=== PATIENT | female | born 1970 | race Hispanic/Latino ===

== ENCOUNTER 2020-12-26 14:35 | Inpatient (IN) | payer SELFPAY ==
[~2020-12-26] VITALS: Ht 170.2 cm; Wt 135.2 kg
[2020-12-26 14:39] VITALS: BP 153/83
[2020-12-26 15:16] LABS: APPEARANCE,URINE Clear (CLEAR); BILIRUBIN,URINE Negative (NEGATIVE); COLOR,URINE Yellow (YELLOW); GLUCOSE, URINE (UA) Negative (NEGATIVE); KETONES,URINE 15 mg/dL (NEGATIVE); LEUKOCYTE ESTERASE ,URINE Small (NEGATIVE); NITRATE,URINE Negative (NEGATIVE); OCCULT BLOOD,URINE Negative (NEGATIVE); PROTEIN,URINE Negative (NEGATIVE)
[2020-12-26 15:25] LABS: RBC,URINE 0-1 /HPF (0-1)
[2020-12-26 15:26] LABS: BACTERIA,URINE Rare /HPF (None Seen); SQUAMOUS EPITHELIAL CELL,UR Few /HPF (0-2)
[2020-12-26 16:09] LABS: BASOPHILS % (AUTO) 0.3 % (0.0-5.0); EOSINOPHILS % (AUTO) 0.2 % (0.0-8.0); LYMPHOCYTES % (AUTO) 8.4 % (21.0-51.0); MEAN CORPUSCULAR HEMOGLOBIN 29.5 pg (27.0-33.0); MEAN CORPUSCULAR HGB CONC 32.2 g/dL (32.0-36.0); MEAN CORPUSCULAR VOLUME 91.5 fL (79-99); NEUTROPHILS % (AUTO) 83.1 % (40.0-77.0); PLATELET COUNT (AUTO) 471 K/uL (130-400); RED BLOOD CELL COUNT(AUTO) 4.48 MIL/uL (4.00-5.50); RED CELL DISTRIBUTION WIDTH 12.8 % (11.0-15.5); WHITE BLOOD COUNT (AUTO) 15.7 K/uL (4.8-10.8)
[2020-12-26 16:22] LABS: CREATININE 0.8 mg/dL (0.5-1.5); POTASSIUM 3.3 mmol/L (3.5-5.1)
[2020-12-26 16:28] LABS: ALBUMIN 2.7 g/dL (3.5-5.0); BILIRUBIN,TOTAL 0.2 mg/dL (0.2-1.0); TOTAL PROTEIN, SERUM 8.7 g/dL (6.0-8.3)
[2020-12-26] MEDS ORDERED: 0.9%NACL 1000ML 1,000 ML IV ONE (16:30)
[2020-12-26] MEDS ORDERED: ACETAMINOPHEN 500 MG TABLET PO ONE (16:30)
[2020-12-26] MEDS ORDERED: 0.9%NACL 50ML 50 ML IV ONE (16:30)
[2020-12-26] MEDS ORDERED: POTASSIUM BICARB/CIT AC 25 MEQ TABLET.EFF PO ONE (16:30)
[2020-12-26] MEDS ORDERED: ZOSYN 3.375GM +NS 50ML IV ONE (16:30)
[2020-12-26] MEDS ORDERED: LISI40TA9 PO (18:55)
[2020-12-26] MEDS ORDERED: METO-391 PO (18:55)
[2020-12-26] MEDS ORDERED: ESCI-8 PO (18:55)
[2020-12-26 18:57] VITALS: BP 144/81
[2020-12-26] MEDS ORDERED: ONDANSETRON 4MG INJ IVP PRN (20:30)
[2020-12-26] MEDS: FAMOTIDINE 20MG VIAL IV SCH (20:58)
[2020-12-26] MEDS: 0.9%NACL 50ML 50 ML IV SCH (20:58)
[2020-12-26] MEDS: METRONIDAZOLE 500MG/100ML BAG 100 ML IV SCH (20:58)
[2020-12-26] MEDS: LISINOPRIL 40 MG TABLET PO SCH (21:00)
[2020-12-26] MEDS: ZOSYN 3.375GM+NS 50ML 50 ML IV SCH (21:00)
[2020-12-26] MEDS: LACTATED RINGERS 1000ML 1,000 ML IV SCH (21:00)
[2020-12-26] MEDS: METOPROLOL SUCCINATE 50 MG TAB.SR.24H PO SCH (21:00)
[2020-12-26 23:21] VITALS: BP 133/95
[2020-12-27] VITALS (7 sets, daily range): BP systolic 109–160; BP diastolic 63–89
[2020-12-27] MEDS ORDERED: FENTANYL CITRATE PF 50 MCG/1 ML 2ML VIAL IVP PRN (00:30)
[2020-12-27] MEDS: MORPHINE 2 MG SYG IV PRN (00:40)
[2020-12-27] MEDS: METRONIDAZOLE 500MG/100ML BAG 100 ML IV SCH ×3 (04:04→19:34)
[2020-12-27] MEDS: MORPHINE 4 MG SYG IV PRN (04:07)
[2020-12-27] MEDS: LACTATED RINGERS 1000ML 1,000 ML IV SCH ×2 (05:37→15:00)
[2020-12-27] MEDS: ZOSYN 3.375GM+NS 50ML 50 ML IV SCH ×3 (05:37→19:34)
[2020-12-27] MEDS: 0.9%NACL 50ML 50 ML IV SCH ×3 (05:37→19:34)
[2020-12-27 05:40] LABS: BASOPHILS % (AUTO) 0.2 % (0.0-5.0); HEMATOCRIT 35.6 % (36-48); LYMPHOCYTES % (AUTO) 3.5 % (21.0-51.0); MEAN CORPUSCULAR HEMOGLOBIN 29.3 pg (27.0-33.0); MEAN CORPUSCULAR HGB CONC 32.3 g/dL (32.0-36.0); MEAN CORPUSCULAR VOLUME 90.6 fL (79-99); MONOCYTES % (AUTO) 5.5 % (3.0-13.0); PLATELET COUNT (AUTO) 393 K/uL (130-400); RED BLOOD CELL COUNT(AUTO) 3.93 MIL/uL (4.00-5.50); RED CELL DISTRIBUTION WIDTH 12.9 % (11.0-15.5); WHITE BLOOD COUNT (AUTO) 16.6 K/uL (4.8-10.8)
[2020-12-27 05:51] LABS: INR 1.27 (0.85-1.15); PROTHROMBIN TIME 13.5 SEC (9.6-11.6)
[2020-12-27 05:52] LABS: CREATININE 0.7 mg/dL (0.5-1.5); MAGNESIUM 1.6 mg/dL (1.80-2.40); PHOSPHORUS 2.3 mg/dL (2.5-4.9); POTASSIUM 3.5 mmol/L (3.5-5.1)
[2020-12-27] MEDS: FAMOTIDINE 20MG VIAL IV SCH ×2 (08:44→19:34)
[2020-12-27 17:54] LABS: ALBUMIN 2.4 g/dL (3.5-5.0); BILIRUBIN,TOTAL 0.3 mg/dL (0.2-1.0); CREATININE 0.9 mg/dL (0.5-1.5); POTASSIUM 3.3 mmol/L (3.5-5.1); TOTAL PROTEIN, SERUM 7.9 g/dL (6.0-8.3)
[2020-12-27] MEDS: METOPROLOL SUCCINATE 50 MG TAB.SR.24H PO SCH (19:37)
[2020-12-27] MEDS: LISINOPRIL 40 MG TABLET PO SCH (19:37)
[2020-12-28] MEDS: METRONIDAZOLE 500MG/100ML BAG 100 ML IV SCH ×3 (02:11→21:17)
[2020-12-28] MEDS: MORPHINE 4 MG SYG IV PRN (03:02)
[2020-12-28 04:14] VITALS: BP 126/70
[2020-12-28] MEDS: ZOSYN 3.375GM+NS 50ML 50 ML IV SCH ×3 (04:33→21:17)
[2020-12-28] MEDS: 0.9%NACL 50ML 50 ML IV SCH ×3 (04:33→21:17)
[2020-12-28 04:48] LABS: BASOPHILS % (AUTO) 0.1 % (0.0-5.0); EOSINOPHILS % (AUTO) 0.1 % (0.0-8.0); HEMATOCRIT 34.2 % (36-48); LYMPHOCYTES % (AUTO) 6.7 % (21.0-51.0); MEAN CORPUSCULAR HEMOGLOBIN 29.5 pg (27.0-33.0); MEAN CORPUSCULAR HGB CONC 32.2 g/dL (32.0-36.0); MEAN CORPUSCULAR VOLUME 91.7 fL (79-99); MONOCYTES % (AUTO) 5.6 % (3.0-13.0); NEUTROPHILS % (AUTO) 86.6 % (40.0-77.0); PLATELET COUNT (AUTO) 369 K/uL (130-400); RED BLOOD CELL COUNT(AUTO) 3.73 MIL/uL (4.00-5.50)
[2020-12-28 05:07] LABS: CREATININE 0.7 mg/dL (0.5-1.5); MAGNESIUM 1.9 mg/dL (1.80-2.40); POTASSIUM 3.1 mmol/L (3.5-5.1)
[2020-12-28] MEDS: POTASSIUM CHLORIDE 20MEQ/100ML 100 ML IV PRN (05:19)
[2020-12-28 05:24] LABS: CRP QUANTITATIVE 328.9 mg/L (0.00-9.0)
[2020-12-28 06:03] LABS: ERYTHROCYTE SEDIMENTATION RATE 107 MM/HR (0-30)
[2020-12-28 07:30] VITALS: BP 118/70
[2020-12-28] MEDS: FAMOTIDINE 20MG VIAL IV SCH ×2 (10:12→21:17)
[2020-12-28 11:00] VITALS: BP 134/77
[2020-12-28 16:00] VITALS: BP 145/77
[2020-12-28 20:00] VITALS: BP 147/89
[2020-12-28] MEDS: LACTATED RINGERS 1000ML 1,000 ML IV SCH ×3 (21:00→21:16)
[2020-12-28] MEDS: METOPROLOL SUCCINATE 50 MG TAB.SR.24H PO SCH (21:17)
[2020-12-28] MEDS: LISINOPRIL 40 MG TABLET PO SCH (21:17)
[2020-12-28] MEDS: MORPHINE 2 MG SYG IV PRN (21:18)
[2020-12-29] VITALS (7 sets, daily range): BP systolic 133–157; BP diastolic 73–97
[2020-12-29] MEDS: METRONIDAZOLE 500MG/100ML BAG 100 ML IV SCH ×3 (04:56→18:09)
[2020-12-29] MEDS: ZOSYN 3.375GM+NS 50ML 50 ML IV SCH ×3 (04:56→20:10)
[2020-12-29] MEDS: 0.9%NACL 50ML 50 ML IV SCH ×3 (04:56→20:10)
[2020-12-29 05:24] LABS: BASOPHILS % (AUTO) 0.2 % (0.0-5.0); EOSINOPHILS % (AUTO) 0.4 % (0.0-8.0); LYMPHOCYTES % (AUTO) 8.4 % (21.0-51.0); MEAN CORPUSCULAR HEMOGLOBIN 29.7 pg (27.0-33.0); MEAN CORPUSCULAR HGB CONC 32.1 g/dL (32.0-36.0); MEAN CORPUSCULAR VOLUME 92.4 fL (79-99); MONOCYTES % (AUTO) 5.9 % (3.0-13.0); NEUTROPHILS % (AUTO) 84.3 % (40.0-77.0); PLATELET COUNT (AUTO) 365 K/uL (130-400); RED BLOOD CELL COUNT(AUTO) 3.57 MIL/uL (4.00-5.50); RED CELL DISTRIBUTION WIDTH 13.2 % (11.0-15.5); WHITE BLOOD COUNT (AUTO) 12.1 K/uL (4.8-10.8)
[2020-12-29 05:51] LABS: CREATININE 0.6 mg/dL (0.5-1.5); POTASSIUM 3.1 mmol/L (3.5-5.1)
[2020-12-29 06:36] LABS: CRP QUANTITATIVE 312.1 mg/L (0.00-9.0)
[2020-12-29] MEDS: LACTATED RINGERS 1000ML 1,000 ML IV SCH ×3 (07:00→20:09)
[2020-12-29] MEDS: FAMOTIDINE 20MG VIAL IV SCH ×2 (09:26→20:10)
[2020-12-29] MEDS: POTASSIUM CHLORIDE 10% ELIXIR 20 MEQ/15 ML UDCUP PO PRN ×3 (10:39→18:10)
[2020-12-29] MEDS: METOPROLOL SUCCINATE 50 MG TAB.SR.24H PO SCH (20:09)
[2020-12-29] MEDS: LISINOPRIL 40 MG TABLET PO SCH (20:09)
[2020-12-29] MEDS: MORPHINE 2 MG SYG IV PRN (21:54)
[2020-12-30] MEDS: METRONIDAZOLE 500MG/100ML BAG 100 ML IV SCH ×3 (02:04→18:46)
[2020-12-30] MEDS: MORPHINE 4 MG SYG IV PRN (03:11)
[2020-12-30 03:42] VITALS: BP 139/72
[2020-12-30] MEDS: ZOSYN 3.375GM+NS 50ML 50 ML IV SCH ×3 (04:18→20:15)
[2020-12-30] MEDS: 0.9%NACL 50ML 50 ML IV SCH ×3 (04:18→20:15)
[2020-12-30 05:51] LABS: BASOPHILS % (AUTO) 0.3 % (0.0-5.0); EOSINOPHILS % (AUTO) 0.4 % (0.0-8.0); HEMATOCRIT 31.9 % (36-48); LYMPHOCYTES % (AUTO) 7.9 % (21.0-51.0); MEAN CORPUSCULAR HEMOGLOBIN 29.7 pg (27.0-33.0); MEAN CORPUSCULAR HGB CONC 32.3 g/dL (32.0-36.0); MEAN CORPUSCULAR VOLUME 91.9 fL (79-99); MONOCYTES % (AUTO) 6.6 % (3.0-13.0); NEUTROPHILS % (AUTO) 83.9 % (40.0-77.0); PLATELET COUNT (AUTO) 354 K/uL (130-400); RED BLOOD CELL COUNT(AUTO) 3.47 MIL/uL (4.00-5.50); RED CELL DISTRIBUTION WIDTH 13.2 % (11.0-15.5); WHITE BLOOD COUNT (AUTO) 11.6 K/uL (4.8-10.8)
[2020-12-30 06:06] LABS: CREATININE 0.5 mg/dL (0.5-1.5); POTASSIUM 3.4 mmol/L (3.5-5.1)
[2020-12-30 06:31] LABS: CRP QUANTITATIVE 219.3 mg/L (0.00-9.0)
[2020-12-30 07:50] VITALS: BP 147/90
[2020-12-30] MEDS: FAMOTIDINE 20MG VIAL IV SCH ×2 (08:19→20:15)
[2020-12-30] MEDS: KCL 20 MEQ ERTAB PO PRN ×2 (08:21→18:46)
[2020-12-30 11:36] VITALS: BP 147/95
[2020-12-30] MEDS: LACTATED RINGERS 1000ML 1,000 ML IV SCH ×2 (13:00→23:00)
[2020-12-30] MEDS: FLUCONAZOLE 200 MG/NS 100 ML 100 ML IV SCH (15:04)
[2020-12-30 15:54] VITALS: BP 165/84
[2020-12-30 20:00] VITALS: BP 147/90
[2020-12-30] MEDS: CITALOPRAM 20 MG TABLET PO SCH (20:13)
[2020-12-30] MEDS: METOPROLOL SUCCINATE 50 MG TAB.SR.24H PO SCH (20:13)
[2020-12-30] MEDS: LISINOPRIL 40 MG TABLET PO SCH (20:15)
[2020-12-30] MEDS ORDERED: DIATR MEGLU/DIATRIZOATE SODIUM 30 ML BOTTLE ONE (20:40)
[2020-12-30] MEDS ORDERED: IOHEXOL 350 MG/ML 100ML INFUS..BTL IV ONE (23:02)
[2020-12-31] VITALS (8 sets, daily range): BP systolic 139–172; BP diastolic 72–97
[2020-12-31] MEDS: METRONIDAZOLE 500MG/100ML BAG 100 ML IV SCH ×3 (02:19→18:08)
[2020-12-31] MEDS: 0.9%NACL 50ML 50 ML IV SCH ×3 (04:47→21:00)
[2020-12-31] MEDS: ZOSYN 3.375GM+NS 50ML 50 ML IV SCH ×3 (04:47→20:25)
[2020-12-31 06:25] LABS: CREATININE 0.6 mg/dL (0.5-1.5); POTASSIUM 3.6 mmol/L (3.5-5.1)
[2020-12-31 06:28] LABS: BASOPHILS % (AUTO) 0.4 % (0.0-5.0); EOSINOPHILS % (AUTO) 0.6 % (0.0-8.0); HEMATOCRIT 32.4 % (36-48); LYMPHOCYTES % (AUTO) 12.6 % (21.0-51.0); MEAN CORPUSCULAR HEMOGLOBIN 29.8 pg (27.0-33.0); MEAN CORPUSCULAR HGB CONC 32.1 g/dL (32.0-36.0); MEAN CORPUSCULAR VOLUME 92.8 fL (79-99); MONOCYTES % (AUTO) 8.1 % (3.0-13.0); NEUTROPHILS % (AUTO) 77.5 % (40.0-77.0); PLATELET COUNT (AUTO) 382 K/uL (130-400); RED BLOOD CELL COUNT(AUTO) 3.49 MIL/uL (4.00-5.50); RED CELL DISTRIBUTION WIDTH 13.2 % (11.0-15.5); WHITE BLOOD COUNT (AUTO) 11.1 K/uL (4.8-10.8)
[2020-12-31] MEDS: LACTATED RINGERS 1000ML 1,000 ML IV SCH ×2 (08:50→18:08)
[2020-12-31] MEDS: FAMOTIDINE 20MG VIAL IV SCH ×2 (08:50→20:25)
[2020-12-31] MEDS: FLUCONAZOLE 200 MG/NS 100 ML 100 ML IV SCH (14:30)
[2020-12-31] MEDS: CITALOPRAM 20 MG TABLET PO SCH (20:25)
[2020-12-31] MEDS: METOPROLOL SUCCINATE 50 MG TAB.SR.24H PO SCH (20:25)
[2020-12-31] MEDS: LISINOPRIL 40 MG TABLET PO SCH (20:25)
[2020-12-31] MEDS: ZOLPIDEM TARTRATE 5 MG TAB PO PRN (21:47)
[2021-01-01] VITALS (7 sets, daily range): BP systolic 139–171; BP diastolic 74–103
[2021-01-01] MEDS: METRONIDAZOLE 500MG/100ML BAG 100 ML IV SCH ×3 (02:20→18:10)
[2021-01-01] MEDS: LACTATED RINGERS 1000ML 1,000 ML IV SCH ×2 (04:06→15:35)
[2021-01-01] MEDS: ZOSYN 3.375GM+NS 50ML 50 ML IV SCH ×3 (04:06→20:24)
[2021-01-01] MEDS: 0.9%NACL 50ML 50 ML IV SCH ×3 (04:06→20:24)
[2021-01-01 06:40] LABS: BASOPHILS % (AUTO) 0.4 % (0.0-5.0); EOSINOPHILS % (AUTO) 0.5 % (0.0-8.0); HEMATOCRIT 33.2 % (36-48); LYMPHOCYTES % (AUTO) 13.2 % (21.0-51.0); MEAN CORPUSCULAR HEMOGLOBIN 28.8 pg (27.0-33.0); MEAN CORPUSCULAR HGB CONC 31.9 g/dL (32.0-36.0); MEAN CORPUSCULAR VOLUME 90.2 fL (79-99); MONOCYTES % (AUTO) 7.3 % (3.0-13.0); PLATELET COUNT (AUTO) 387 K/uL (130-400); RED BLOOD CELL COUNT(AUTO) 3.68 MIL/uL (4.00-5.50); RED CELL DISTRIBUTION WIDTH 13.1 % (11.0-15.5); WHITE BLOOD COUNT (AUTO) 9.7 K/uL (4.8-10.8)
[2021-01-01 06:54] LABS: CREATININE 0.6 mg/dL (0.5-1.5); CRP QUANTITATIVE 149.8 mg/L (0.00-9.0); POTASSIUM 3.2 mmol/L (3.5-5.1)
[2021-01-01] MEDS: POTASSIUM CHLORIDE 20MEQ/100ML 100 ML IV PRN (08:48)
[2021-01-01] MEDS: LIDOCAINE HCL-MPF 1% 2ML VIAL IV PRN (08:48)
[2021-01-01] MEDS: FAMOTIDINE 20MG VIAL IV SCH ×2 (08:48→20:25)
[2021-01-01] MEDS: FLUCONAZOLE 200 MG/NS 100 ML 100 ML IV SCH (15:35)
[2021-01-01] MEDS ORDERED: LABETALOL 20MG SYG IV PRN (17:00)
[2021-01-01] MEDS ORDERED: LORAZEPAM 2 MG/ML 1 ML VIAL IVP PRN (17:00)
[2021-01-01] MEDS: LISINOPRIL 40 MG TABLET PO SCH (20:25)
[2021-01-01] MEDS: METOPROLOL SUCCINATE 50 MG TAB.SR.24H PO SCH (20:25)
[2021-01-01] MEDS: CITALOPRAM 20 MG TABLET PO SCH (20:25)
[2021-01-01] MEDS: KCL 20 MEQ ERTAB PO PRN (20:26)
[2021-01-01] MEDS: ZOLPIDEM TARTRATE 5 MG TAB PO PRN (21:17)
[2021-01-01] MEDS: POTASSIUM CHLORIDE 10% ELIXIR 20 MEQ/15 ML UDCUP PO PRN (21:17)
[2021-01-02] MEDS: LACTATED RINGERS 1000ML 1,000 ML IV SCH ×3 (01:00→22:40)
[2021-01-02] MEDS: METRONIDAZOLE 500MG/100ML BAG 100 ML IV SCH ×3 (03:10→19:00)
[2021-01-02 03:31] VITALS: BP 141/77
[2021-01-02] MEDS: ZOSYN 3.375GM+NS 50ML 50 ML IV SCH ×3 (05:08→22:40)
[2021-01-02] MEDS: 0.9%NACL 50ML 50 ML IV SCH ×3 (05:08→22:40)
[2021-01-02 05:15] LABS: BASOPHILS % (AUTO) 0.4 % (0.0-5.0); EOSINOPHILS % (AUTO) 0.1 % (0.0-8.0); HEMATOCRIT 32.3 % (36-48); LYMPHOCYTES % (AUTO) 7.3 % (21.0-51.0); MEAN CORPUSCULAR HEMOGLOBIN 29.7 pg (27.0-33.0); MEAN CORPUSCULAR HGB CONC 32.2 g/dL (32.0-36.0); MEAN CORPUSCULAR VOLUME 92.3 fL (79-99); MONOCYTES % (AUTO) 6.4 % (3.0-13.0); PLATELET COUNT (AUTO) 359 K/uL (130-400); RED CELL DISTRIBUTION WIDTH 13.3 % (11.0-15.5); WHITE BLOOD COUNT (AUTO) 14.2 K/uL (4.8-10.8)
[2021-01-02 05:34] LABS: % IRON SATURATION 20.7 % (22-44)
[2021-01-02 05:46] LABS: CREATININE 0.6 mg/dL (0.5-1.5); CRP QUANTITATIVE 116.8 mg/L (0.00-9.0); MAGNESIUM 1.7 mg/dL (1.80-2.40); POTASSIUM 3.4 mmol/L (3.5-5.1)
[2021-01-02 06:22] LABS: ERYTHROCYTE SEDIMENTATION RATE 123 MM/HR (0-30)
[2021-01-02] MEDS: MAGNESIUM 2GM PREMIX 50ML 50 ML IV SCH (07:00)
[2021-01-02] MEDS: POTASSIUM CHLORIDE 10% ELIXIR 20 MEQ/15 ML UDCUP PO PRN (07:00)
[2021-01-02 07:30] VITALS: BP 119/83
[2021-01-02] MEDS ORDERED: COMPOUND IV MISC 1 EACH IVSOLN MISC PRN (08:30)
[2021-01-02] MEDS: FAMOTIDINE 20MG VIAL IV SCH ×2 (09:36→22:40)
[2021-01-02] MEDS: METOPROLOL SUCCINATE 50 MG TAB.SR.24H PO SCH (09:38)
[2021-01-02] MEDS: LISINOPRIL 40 MG TABLET PO SCH (09:38)
[2021-01-02 11:00] VITALS: BP 162/89
[2021-01-02] MEDS: IRON SUCROSE COMPLEX 300 MG in 0.9%NACL 50ML 50 ML IV SCH (11:18)
[2021-01-02] MEDS: FLUCONAZOLE 200 MG/NS 100 ML 100 ML IV SCH (14:41)
[2021-01-02 16:00] VITALS: BP 146/91
[2021-01-02 20:00] VITALS: BP 162/83
[2021-01-02] MEDS: CITALOPRAM 20 MG TABLET PO SCH (22:40)
[2021-01-03] VITALS: BP 157/85
[2021-01-03] MEDS: METRONIDAZOLE 500MG/100ML BAG 100 ML IV SCH ×3 (03:15→20:06)
[2021-01-03 04:00] VITALS: BP 144/69
[2021-01-03] MEDS: ZOSYN 3.375GM+NS 50ML 50 ML IV SCH ×3 (05:52→20:40)
[2021-01-03] MEDS: 0.9%NACL 50ML 50 ML IV SCH ×3 (05:52→20:40)
[2021-01-03 06:01] LABS: CREATININE 0.6 mg/dL (0.5-1.5); CRP QUANTITATIVE 147.2 mg/L (0.00-9.0); POTASSIUM 3.4 mmol/L (3.5-5.1)
[2021-01-03] MEDS: LACTATED RINGERS 1000ML 1,000 ML IV SCH ×2 (06:42→22:43)
[2021-01-03 06:47] LABS: BASOPHILS % (AUTO) 0.3 % (0.0-5.0); EOSINOPHILS % (AUTO) 0.6 % (0.0-8.0); HEMATOCRIT 31.8 % (36-48); LYMPHOCYTES % (AUTO) 10.9 % (21.0-51.0); MEAN CORPUSCULAR HEMOGLOBIN 29.6 pg (27.0-33.0); MEAN CORPUSCULAR HGB CONC 32.4 g/dL (32.0-36.0); MEAN CORPUSCULAR VOLUME 91.4 fL (79-99); MONOCYTES % (AUTO) 8.3 % (3.0-13.0); NEUTROPHILS % (AUTO) 79.3 % (40.0-77.0); PLATELET COUNT (AUTO) 378 K/uL (130-400); RED BLOOD CELL COUNT(AUTO) 3.48 MIL/uL (4.00-5.50); RED CELL DISTRIBUTION WIDTH 13.6 % (11.0-15.5); WHITE BLOOD COUNT (AUTO) 10.2 K/uL (4.8-10.8)
[2021-01-03 07:30] VITALS: BP 154/82
[2021-01-03] MEDS: FAMOTIDINE 20MG VIAL IV SCH ×2 (08:27→20:39)
[2021-01-03] MEDS: METOPROLOL SUCCINATE 50 MG TAB.SR.24H PO SCH (08:27)
[2021-01-03] MEDS: LISINOPRIL 40 MG TABLET PO SCH (08:27)
[2021-01-03 11:00] VITALS: BP 131/74
[2021-01-03] MEDS: IRON SUCROSE COMPLEX 300 MG in 0.9%NACL 50ML 50 ML IV SCH (12:27)
[2021-01-03 16:00] VITALS: BP 168/92
[2021-01-03] MEDS: FLUCONAZOLE 200 MG/NS 100 ML 100 ML IV SCH (17:03)
[2021-01-03] MEDS: POTASSIUM CHLORIDE 10% ELIXIR 20 MEQ/15 ML UDCUP PO PRN ×2 (17:06→20:39)
[2021-01-03 20:00] VITALS: BP 160/90
[2021-01-03] MEDS: CITALOPRAM 20 MG TABLET PO SCH (20:39)
[2021-01-04] VITALS (7 sets, daily range): BP systolic 130–166; BP diastolic 73–90
[2021-01-04] MEDS: LACTATED RINGERS 1000ML 1,000 ML IV SCH ×2 (03:00→14:20)
[2021-01-04] MEDS: METRONIDAZOLE 500MG/100ML BAG 100 ML IV SCH ×3 (03:18→18:45)
[2021-01-04] MEDS: 0.9%NACL 50ML 50 ML IV SCH ×3 (05:17→21:39)
[2021-01-04] MEDS: ZOSYN 3.375GM+NS 50ML 50 ML IV SCH ×3 (05:17→21:38)
[2021-01-04 05:44] LABS: BASOPHILS % (AUTO) 0.4 % (0.0-5.0); EOSINOPHILS % (AUTO) 0.7 % (0.0-8.0); HEMATOCRIT 32.9 % (36-48); LYMPHOCYTES % (AUTO) 16.8 % (21.0-51.0); MEAN CORPUSCULAR HEMOGLOBIN 29.4 pg (27.0-33.0); MEAN CORPUSCULAR HGB CONC 31.9 g/dL (32.0-36.0); MEAN CORPUSCULAR VOLUME 92.2 fL (79-99); MONOCYTES % (AUTO) 8.8 % (3.0-13.0); NEUTROPHILS % (AUTO) 72.8 % (40.0-77.0); PLATELET COUNT (AUTO) 374 K/uL (130-400); RED BLOOD CELL COUNT(AUTO) 3.57 MIL/uL (4.00-5.50); RED CELL DISTRIBUTION WIDTH 13.7 % (11.0-15.5); WHITE BLOOD COUNT (AUTO) 8.5 K/uL (4.8-10.8)
[2021-01-04 06:01] LABS: CREATININE 0.6 mg/dL (0.5-1.5); CRP QUANTITATIVE 146.4 mg/L (0.00-9.0)
[2021-01-04] MEDS: LIDOCAINE HCL-MPF 1% 2ML VIAL IV PRN (06:43)
[2021-01-04] MEDS: POTASSIUM CHLORIDE 20MEQ/100ML 100 ML IV PRN (06:43)
[2021-01-04] MEDS: IRON SUCROSE COMPLEX 300 MG in 0.9%NACL 50ML 50 ML IV SCH (10:00)
[2021-01-04] MEDS: METOPROLOL SUCCINATE 50 MG TAB.SR.24H PO SCH (10:00)
[2021-01-04] MEDS: LISINOPRIL 40 MG TABLET PO SCH (10:00)
[2021-01-04] MEDS: FAMOTIDINE 20MG VIAL IV SCH ×2 (10:00→21:38)
[2021-01-04] MEDS: POTASSIUM CHLORIDE 10% ELIXIR 20 MEQ/15 ML UDCUP PO SCH (14:20)
[2021-01-04] MEDS: FLUCONAZOLE 200 MG/NS 100 ML 100 ML IV SCH (14:20)
[2021-01-04] MEDS ORDERED: POTASSIUM CHLORIDE 10% ELIXIR 20 MEQ/15 ML UDCUP PO SCH (17:30)
[2021-01-04] MEDS: CITALOPRAM 20 MG TABLET PO SCH (21:38)
[2021-01-05 03:46] VITALS: BP 152/80
[2021-01-05] MEDS: METRONIDAZOLE 500MG/100ML BAG 100 ML IV SCH ×3 (04:11→17:58)
[2021-01-05] MEDS: 0.9%NACL 50ML 50 ML IV SCH ×3 (04:25→21:00)
[2021-01-05] MEDS: ZOSYN 3.375GM+NS 50ML 50 ML IV SCH ×3 (04:25→21:00)
[2021-01-05] MEDS: LACTATED RINGERS 1000ML 1,000 ML IV SCH ×2 (08:00→08:44)
[2021-01-05 08:14] VITALS: BP 142/84
[2021-01-05] MEDS: METOPROLOL SUCCINATE 50 MG TAB.SR.24H PO SCH (08:43)
[2021-01-05] MEDS: LISINOPRIL 40 MG TABLET PO SCH (08:43)
[2021-01-05] MEDS: FAMOTIDINE 20MG VIAL IV SCH ×2 (08:44→21:00)
[2021-01-05 11:41] VITALS: BP 156/82
[2021-01-05] MEDS: POTASSIUM CHLORIDE 10% ELIXIR 20 MEQ/15 ML UDCUP PO SCH (13:30)
[2021-01-05] MEDS: FLUCONAZOLE 200 MG/NS 100 ML 100 ML IV SCH (14:38)
[2021-01-05 16:00] VITALS: BP 162/82
[2021-01-05 20:00] VITALS: BP 176/96
[2021-01-05] MEDS: CITALOPRAM 20 MG TABLET PO SCH (21:00)
[2021-01-05 23:51] VITALS: BP 148/82
[2021-01-06] MEDS: METRONIDAZOLE 500MG/100ML BAG 100 ML IV SCH ×3 (03:06→21:20)
[2021-01-06 03:50] VITALS: BP 157/85
[2021-01-06] MEDS: LACTATED RINGERS 1000ML 1,000 ML IV SCH ×2 (05:00→05:50)
[2021-01-06] MEDS: ZOSYN 3.375GM+NS 50ML 50 ML IV SCH ×3 (05:05→21:18)
[2021-01-06] MEDS: 0.9%NACL 50ML 50 ML IV SCH ×3 (05:51→21:20)
[2021-01-06 08:16] VITALS: BP 159/89
[2021-01-06 12:15] VITALS: BP 140/95
[2021-01-06] MEDS: POTASSIUM CHLORIDE 10% ELIXIR 20 MEQ/15 ML UDCUP PO SCH (13:01)
[2021-01-06] MEDS: LISINOPRIL 40 MG TABLET PO SCH (13:14)
[2021-01-06] MEDS: METOPROLOL SUCCINATE 50 MG TAB.SR.24H PO SCH (13:14)
[2021-01-06] MEDS: FAMOTIDINE 20MG VIAL IV SCH ×2 (13:14→21:20)
[2021-01-06] MEDS ORDERED: FUROSEMIDE 40MG VIAL IV ONE (14:00)
[2021-01-06 14:11] LABS: BASOPHILS % (AUTO) 0.5 % (0.0-5.0); EOSINOPHILS % (AUTO) 0.8 % (0.0-8.0); HEMATOCRIT 37.6 % (36-48); LYMPHOCYTES % (AUTO) 15.9 % (21.0-51.0); MEAN CORPUSCULAR HEMOGLOBIN 29.4 pg (27.0-33.0); MEAN CORPUSCULAR HGB CONC 31.9 g/dL (32.0-36.0); MEAN CORPUSCULAR VOLUME 92.2 fL (79-99); MONOCYTES % (AUTO) 9.2 % (3.0-13.0); NEUTROPHILS % (AUTO) 71.4 % (40.0-77.0); PLATELET COUNT (AUTO) 360 K/uL (130-400); RED BLOOD CELL COUNT(AUTO) 4.08 MIL/uL (4.00-5.50); RED CELL DISTRIBUTION WIDTH 14.1 % (11.0-15.5); WHITE BLOOD COUNT (AUTO) 7.4 K/uL (4.8-10.8)
[2021-01-06 14:18] LABS: CREATININE 0.7 mg/dL (0.5-1.5); POTASSIUM 3.3 mmol/L (3.5-5.1)
[2021-01-06 14:21] LABS: CRP QUANTITATIVE 65.3 mg/L (0.00-9.0); MAGNESIUM 1.6 mg/dL (1.80-2.40); PHOSPHORUS 2.7 mg/dL (2.5-4.9)
[2021-01-06] MEDS: FLUCONAZOLE 200 MG/NS 100 ML 100 ML IV SCH (14:49)
[2021-01-06 15:12] LABS: ERYTHROCYTE SEDIMENTATION RATE 96 MM/HR (0-30)
[2021-01-06] MEDS: POTASSIUM CHLORIDE 10% ELIXIR 20 MEQ/15 ML UDCUP PO PRN ×2 (16:36→21:15)
[2021-01-06 16:49] VITALS: BP 166/93
[2021-01-06] MEDS ORDERED: FUROSEMIDE 40MG VIAL ONE (17:50)
[2021-01-06 20:00] VITALS: BP 141/88
[2021-01-06] MEDS: MAGNESIUM 2GM PREMIX 50ML 50 ML IV SCH (21:15)
[2021-01-06] MEDS: CITALOPRAM 20 MG TABLET PO SCH (21:20)
[2021-01-06] MEDS: ZOLPIDEM TARTRATE 5 MG TAB PO PRN (21:20)
[2021-01-07] VITALS: BP 123/77
[2021-01-07] MEDS: METRONIDAZOLE 500MG/100ML BAG 100 ML IV SCH ×2 (03:36→11:52)
[2021-01-07 04:00] VITALS: BP 134/74
[2021-01-07 05:30] LABS: BASOPHILS % (AUTO) 0.4 % (0.0-5.0); EOSINOPHILS % (AUTO) 1.3 % (0.0-8.0); HEMATOCRIT 37.3 % (36-48); LYMPHOCYTES % (AUTO) 19.4 % (21.0-51.0); MEAN CORPUSCULAR HEMOGLOBIN 29.1 pg (27.0-33.0); MEAN CORPUSCULAR HGB CONC 31.6 g/dL (32.0-36.0); MEAN CORPUSCULAR VOLUME 91.9 fL (79-99); MONOCYTES % (AUTO) 13.9 % (3.0-13.0); NEUTROPHILS % (AUTO) 64.1 % (40.0-77.0); PLATELET COUNT (AUTO) 377 K/uL (130-400); RED BLOOD CELL COUNT(AUTO) 4.06 MIL/uL (4.00-5.50); RED CELL DISTRIBUTION WIDTH 14.2 % (11.0-15.5); WHITE BLOOD COUNT (AUTO) 6.9 K/uL (4.8-10.8)
[2021-01-07 05:44] LABS: CREATININE 0.7 mg/dL (0.5-1.5); CRP QUANTITATIVE 49.5 mg/L (0.00-9.0); POTASSIUM 3.4 mmol/L (3.5-5.1)
[2021-01-07] MEDS: 0.9%NACL 50ML 50 ML IV SCH ×2 (05:52→13:16)
[2021-01-07] MEDS: ZOSYN 3.375GM+NS 50ML 50 ML IV SCH ×2 (05:52→13:16)
[2021-01-07 08:00] VITALS: BP 132/78
[2021-01-07] MEDS: METOPROLOL SUCCINATE 50 MG TAB.SR.24H PO SCH (08:55)
[2021-01-07] MEDS: FAMOTIDINE 20MG VIAL IV SCH (08:55)
[2021-01-07] MEDS: LISINOPRIL 40 MG TABLET PO SCH (08:56)
[2021-01-07 12:00] VITALS: BP 120/83
[2021-01-07] MEDS: FLUCONAZOLE 200 MG/NS 100 ML 100 ML IV SCH (13:16)
[2021-01-07 16:00] VITALS: BP 133/75
[2021-01-07] MEDS ORDERED: FLUC200T8 PO (18:31)
[2021-01-07] MEDS ORDERED: AMOX-429 PO (18:31)
== END 2021-01-07 19:40 | disposition home or self-care (01) | DRG 391 ==
LOC: EDH 14:35 → EDHIP 14:36 → 3AH 12-27 04:46
PROVIDERS: ADMIT Internal Medicine; ATTEND Internal Medicine
DX: K57.20 Diverticulitis of large intestine with perforation and abscess without bleeding (principal); K65.0 Generalized (acute) peritonitis; K65.1 Peritoneal abscess; Z68.42 Body mass index [BMI] 45.0-49.9, adult; N13.30 Unspecified hydronephrosis; E87.6 Hypokalemia; I10 Essential (primary) hypertension; D72.829 Elevated white blood cell count, unspecified; E66.01 Morbid (severe) obesity due to excess calories; D64.9 Anemia, unspecified; F32.9 Major depressive disorder, single episode, unspecified; N70.11 Chronic salpingitis; F41.9 Anxiety disorder, unspecified; Z88.5 Allergy status to narcotic agent; Z90.721 Acquired absence of ovaries, unilateral; Z90.79 Acquired absence of other genital organ(s); Z90.5 Acquired absence of kidney; Z98.891 History of uterine scar from previous surgery
CPT/HCPCS: 36415; 71046; 74176; 74178; 80048; 80053; 81001; 82150; 83540; 83550; 83605; 83690; 83735; 83880; 84100; 84145; 84703; 85025; 85045; 85610; 85651; 85730; 86140; 86850; 86900; 86901; 87040; 93005; G0378; J1450; J1756; J1940; J2060; J2270; J2543; J3475; J3480; J3490; J7030; J7120; Q9963; Q9967

== ENCOUNTER 2021-04-16 13:16 | Inpatient (IN) | payer OTHER ==
[~2021-04-16] VITALS: Ht 170.2 cm; Wt 105.8 kg
[~2021-04-16 13:16] MED LIST: AMOX-429 PO; ESCI-8 PO; FLUC200T8 PO; LISI40TA9 PO; METO-391 PO
[2021-04-16 14:15] LABS: BASOPHILS % (AUTO) 0.5 % (0.0-5.0); EOSINOPHILS % (AUTO) 1.1 % (0.0-8.0); HEMATOCRIT 40.2 % (36-48); MEAN CORPUSCULAR HEMOGLOBIN 29.4 pg (27.0-33.0); MEAN CORPUSCULAR HGB CONC 32.6 g/dL (32.0-36.0); MEAN CORPUSCULAR VOLUME 90.3 fL (79-99); MONOCYTES % (AUTO) 8.3 % (3.0-13.0); NEUTROPHILS % (AUTO) 67.3 % (40.0-77.0); PLATELET COUNT (AUTO) 536 K/uL (130-400); RED BLOOD CELL COUNT(AUTO) 4.45 MIL/uL (4.00-5.50); RED CELL DISTRIBUTION WIDTH 16.3 % (11.0-15.5); WHITE BLOOD COUNT (AUTO) 6.7 K/uL (4.8-10.8)
[2021-04-16 14:27] LABS: CREATININE 1.2 mg/dL (0.5-1.5); INR 1.15 (0.85-1.15); POTASSIUM 3.4 mmol/L (3.5-5.1); PROTHROMBIN TIME 12.4 SEC (9.6-11.6)
[2021-04-16 14:29] LABS: PARTIAL THROMBOPLASTIN TIME 26.8 SEC (26.3-35.5)
[2021-04-16 14:32] LABS: ALBUMIN 2.6 g/dL (3.5-5.0); BILIRUBIN,TOTAL 0.3 mg/dL (0.2-1.0); TOTAL PROTEIN, SERUM 8.2 g/dL (6.0-8.3)
[2021-04-16 15:03] LABS: APPEARANCE,URINE TURBID (CLEAR); COLOR,URINE YELLOW (YELLOW); LEUKOCYTE ESTERASE ,URINE MODERATE (NEGATIVE)
[2021-04-16 15:04] LABS: NITRATE,URINE POSITIVE (NEGATIVE); UROBILINOGEN,URINE 0.2 mg/dL (0.2-1.0)
[2021-04-16 15:05] LABS: OCCULT BLOOD,URINE LARGE (NEGATIVE); PROTEIN,URINE >=300 mg/dL (NEGATIVE)
[2021-04-16 15:06] LABS: BILIRUBIN,URINE Large (NEGATIVE)
[2021-04-16 15:07] LABS: GLUCOSE, URINE (UA) NEGATIVE (NEGATIVE); KETONES,URINE 5 mg/dL (NEGATIVE)
[2021-04-16 15:11] LABS: BACTERIA,URINE Many /HPF (None Seen)
[2021-04-16 15:13] LABS: WBC,URINE 26-50 /HPF (0-1)
[2021-04-16 15:15] LABS: SQUAMOUS EPITHELIAL CELL,UR None Seen /HPF (0-2)
[2021-04-16] MEDS ORDERED: IOHEXOL 350 MG/ML 100ML INFUS..BTL IV ONE (16:02)
[2021-04-16] MEDS: ZOSYN 3.375GM +NS 50ML IV SCH (16:32)
[2021-04-16] MEDS ORDERED: ONDANSETRON 4MG INJ IV PRN (17:00)
[2021-04-16] MEDS ORDERED: ACETAMINOPHEN 325 MG TAB PO PRN ×2 (17:00)
[2021-04-16] MEDS ORDERED: MORPHINE 2 MG SYG IV PRN (17:00)
[2021-04-16] MEDS ORDERED: MORPHINE 4 MG SYG IV PRN (17:00)
[2021-04-16] MEDS: ZOSYN 3.375GM+NS 50ML 50 ML IV SCH (21:20)
[2021-04-16] MEDS: FAMOTIDINE 20MG VIAL IV SCH (21:20)
[2021-04-16 22:45] VITALS: BP 114/76
[2021-04-17 03:56] VITALS: BP 115/63
[2021-04-17] MEDS: ZOSYN 3.375GM+NS 50ML 50 ML IV SCH ×3 (06:02→21:06)
[2021-04-17 07:05] VITALS: BP 105/59
[2021-04-17 07:55] LABS: HEMATOCRIT 39.1 % (36-48); MEAN CORPUSCULAR HEMOGLOBIN 30.3 pg (27.0-33.0); MEAN CORPUSCULAR HGB CONC 32.7 g/dL (32.0-36.0); MEAN CORPUSCULAR VOLUME 92.7 fL (79-99); RED BLOOD CELL COUNT(AUTO) 4.22 MIL/uL (4.00-5.50); RED CELL DISTRIBUTION WIDTH 16.5 % (11.0-15.5); WHITE BLOOD COUNT (AUTO) 6.4 K/uL (4.8-10.8)
[2021-04-17 08:12] LABS: ALBUMIN 2.5 g/dL (3.5-5.0); BILIRUBIN,TOTAL 0.3 mg/dL (0.2-1.0); CREATININE 1.1 mg/dL (0.5-1.5); POTASSIUM 3.5 mmol/L (3.5-5.1); TOTAL PROTEIN, SERUM 7.7 g/dL (6.0-8.3)
[2021-04-17 11:05] VITALS: BP 142/73
[2021-04-17] MEDS: FAMOTIDINE 20MG VIAL IV SCH ×2 (11:58→21:06)
[2021-04-17] MEDS ORDERED: FENTANYL CITRATE PF 50 MCG/1 ML 2ML VIAL ONE (14:12)
[2021-04-17 15:00] VITALS: BP 128/52
[2021-04-17] MEDS: ZOSYN 3.375GM +NS 50ML IV SCH (16:30)
[2021-04-17 20:15] VITALS: BP 139/74
[2021-04-17] MEDS: METOPROLOL SUCCINATE 50 MG TAB.SR.24H PO SCH (21:06)
[2021-04-17] MEDS: LISINOPRIL 40 MG TABLET PO SCH (21:06)
[2021-04-17] MEDS: CITALOPRAM 20 MG TABLET PO SCH (21:06)
[2021-04-17 23:12] VITALS: BP 92/52
[2021-04-18] VITALS (12 sets, daily range): BP systolic 99–136; BP diastolic 56–76
[2021-04-18 04:38] LABS: HEMATOCRIT 34.6 % (36-48); MEAN CORPUSCULAR HEMOGLOBIN 29.4 pg (27.0-33.0); MEAN CORPUSCULAR HGB CONC 32.4 g/dL (32.0-36.0); MEAN CORPUSCULAR VOLUME 90.8 fL (79-99); RED BLOOD CELL COUNT(AUTO) 3.81 MIL/uL (4.00-5.50); RED CELL DISTRIBUTION WIDTH 16.6 % (11.0-15.5); WHITE BLOOD COUNT (AUTO) 6.5 K/uL (4.8-10.8)
[2021-04-18 04:45] LABS: CREATININE 1.1 mg/dL (0.5-1.5); POTASSIUM 3.5 mmol/L (3.5-5.1)
[2021-04-18] MEDS: ZOSYN 3.375GM+NS 50ML 50 ML IV SCH ×3 (05:43→22:01)
[2021-04-18] MEDS: ZOSYN 3.375GM +NS 50ML IV SCH (07:28)
[2021-04-18] MEDS: FAMOTIDINE 20MG VIAL IV SCH ×2 (08:12→22:01)
[2021-04-18] MEDS ORDERED: MIDAZOLAM HCL 1 MG/ML 2ML VIAL ONE (09:34)
[2021-04-18] MEDS ORDERED: FENTANYL CITRATE PF 50 MCG/1 ML 2ML VIAL ONE (09:34)
[2021-04-18] MEDS: LISINOPRIL 40 MG TABLET PO SCH (22:01)
[2021-04-18] MEDS: METOPROLOL SUCCINATE 50 MG TAB.SR.24H PO SCH (22:02)
[2021-04-18] MEDS: CITALOPRAM 20 MG TABLET PO SCH (22:02)
[2021-04-19] VITALS: BP 103/61
[2021-04-19 04:00] VITALS: BP 109/63
[2021-04-19] MEDS: ZOSYN 3.375GM+NS 50ML 50 ML IV SCH ×3 (04:36→21:21)
[2021-04-19 04:49] LABS: MEAN CORPUSCULAR HEMOGLOBIN 29.7 pg (27.0-33.0); MEAN CORPUSCULAR HGB CONC 32.4 g/dL (32.0-36.0); MEAN CORPUSCULAR VOLUME 91.9 fL (79-99); RED BLOOD CELL COUNT(AUTO) 3.7 MIL/uL (4.00-5.50); RED CELL DISTRIBUTION WIDTH 16.6 % (11.0-15.5); WHITE BLOOD COUNT (AUTO) 5.7 K/uL (4.8-10.8)
[2021-04-19 05:02] LABS: CREATININE 1.2 mg/dL (0.5-1.5); POTASSIUM 3.2 mmol/L (3.5-5.1)
[2021-04-19 07:10] VITALS: BP 104/60
[2021-04-19] MEDS: FAMOTIDINE 20MG VIAL IV SCH ×2 (08:48→21:21)
[2021-04-19 11:10] VITALS: BP 116/75
[2021-04-19] MEDS ORDERED: KCL 20 MEQ ERTAB PO SCH (12:00)
[2021-04-19 15:10] VITALS: BP 118/78
[2021-04-19] MEDS: ZOSYN 3.375GM +NS 50ML IV SCH (17:02)
[2021-04-19 20:00] VITALS: BP 90/68
[2021-04-19] MEDS: METOPROLOL SUCCINATE 50 MG TAB.SR.24H PO SCH (21:00)
[2021-04-19] MEDS: LISINOPRIL 40 MG TABLET PO SCH (21:00)
[2021-04-19] MEDS: CITALOPRAM 20 MG TABLET PO SCH (21:21)
[2021-04-20] VITALS: BP 101/69
[2021-04-20 04:00] VITALS: BP 116/70
[2021-04-20] MEDS: ZOSYN 3.375GM+NS 50ML 50 ML IV SCH ×3 (05:05→21:10)
[2021-04-20 05:20] LABS: HEMATOCRIT 34.2 % (36-48); MEAN CORPUSCULAR HEMOGLOBIN 29.7 pg (27.0-33.0); MEAN CORPUSCULAR HGB CONC 32.2 g/dL (32.0-36.0); MEAN CORPUSCULAR VOLUME 92.4 fL (79-99); RED BLOOD CELL COUNT(AUTO) 3.7 MIL/uL (4.00-5.50); RED CELL DISTRIBUTION WIDTH 16.9 % (11.0-15.5); WHITE BLOOD COUNT (AUTO) 5.8 K/uL (4.8-10.8)
[2021-04-20 05:39] LABS: CREATININE 1.2 mg/dL (0.5-1.5); POTASSIUM 3.6 mmol/L (3.5-5.1)
[2021-04-20 08:00] VITALS: BP 114/75
[2021-04-20] MEDS: FAMOTIDINE 20MG VIAL IV SCH ×2 (11:05→21:10)
[2021-04-20 11:45] VITALS: BP 120/73
[2021-04-20] MEDS: ZOSYN 3.375GM +NS 50ML IV SCH (16:30)
[2021-04-20 16:54] VITALS: BP 121/82
[2021-04-20 20:00] VITALS: BP 114/66
[2021-04-20] MEDS: CITALOPRAM 20 MG TABLET PO SCH (21:09)
[2021-04-20] MEDS: METOPROLOL SUCCINATE 50 MG TAB.SR.24H PO SCH (21:09)
[2021-04-20] MEDS: LISINOPRIL 40 MG TABLET PO SCH (21:09)
[2021-04-21] VITALS: BP 108/61
[2021-04-21 04:00] VITALS: BP 100/63
[2021-04-21] MEDS: ZOSYN 3.375GM+NS 50ML 50 ML IV SCH ×2 (05:36→13:24)
[2021-04-21 05:45] LABS: HEMATOCRIT 34.5 % (36-48); MEAN CORPUSCULAR HEMOGLOBIN 29.3 pg (27.0-33.0); MEAN CORPUSCULAR HGB CONC 31.6 g/dL (32.0-36.0); MEAN CORPUSCULAR VOLUME 92.7 fL (79-99); RED BLOOD CELL COUNT(AUTO) 3.72 MIL/uL (4.00-5.50); RED CELL DISTRIBUTION WIDTH 16.9 % (11.0-15.5); WHITE BLOOD COUNT (AUTO) 8.3 K/uL (4.8-10.8)
[2021-04-21 05:57] LABS: POTASSIUM 3.3 mmol/L (3.5-5.1)
[2021-04-21] MEDS ORDERED: KCL 20 MEQ ERTAB PO SCH (06:30)
[2021-04-21 07:49] VITALS: BP 113/72
[2021-04-21] MEDS: FAMOTIDINE 20MG VIAL IV SCH (10:00)
[2021-04-21] MEDS ORDERED: SULF1TAB42 PO (10:57)
[2021-04-21 11:33] VITALS: BP 101/58
[2021-04-21] MEDS: ZOSYN 3.375GM +NS 50ML IV SCH (12:58)
[2021-04-21 16:00] VITALS: BP 100/53
[2021-06-24] MEDS ORDERED: ESCI-8 PO (06:59)
[2021-06-24] MEDS ORDERED: AMOX-429 PO (06:59)
[2021-06-24] MEDS ORDERED: LISI40TA9 PO (06:59)
[2021-06-24] MEDS ORDERED: METO50TA18 PO (06:59)
== END 2021-04-21 18:30 | disposition home or self-care (01) | DRG 690 ==
LOC: EDH 13:16 → EDHIP 16:40 → 3CH 21:28
PROVIDERS: ADMIT Internal Medicine; ATTEND Internal Medicine
PROC: 0W9G30Z Drainage of Peritoneal Cavity with Drainage Device, Percutaneous Approach (ICD-10-PCS; principal; 2021-04-18)
DX: N13.6 Pyonephrosis (principal); K57.20 Diverticulitis of large intestine with perforation and abscess without bleeding; E44.0 Moderate protein-calorie malnutrition; N32.1 Vesicointestinal fistula; E87.6 Hypokalemia; Z20.822 Contact with and (suspected) exposure to COVID-19; F41.9 Anxiety disorder, unspecified; F32.A Depression, unspecified; I10 Essential (primary) hypertension; Z68.36 Body mass index [BMI] 36.0-36.9, adult; F03.90 Unspecified dementia, unspecified severity, without behavioral disturbance, psychotic disturbance, mood disturbance, and anxiety; N73.9 Female pelvic inflammatory disease, unspecified; Z88.5 Allergy status to narcotic agent; Z80.0 Family history of malignant neoplasm of digestive organs
CPT/HCPCS: 10030; 36415; 74177; 76770; 77012; 80048; 80053; 81001; 82550; 84145; 84484; 85025; 85027; 85610; 85651; 85730; 86140; 87040; 87071; 87076; 87077; 87088; 87186; 87205; 87635; 99152; 99153; C9803; G0378; J2250; J2543; J3010; J3490; Q9967

== ENCOUNTER → 2021-08-08 | Outpatient (CLI) | payer OTHER ==
[~2021-08-08] MED LIST changes: -AMOX-429 PO; -FLUC200T8 PO; +LIDOCAINE HCL 4% LTA SOL 4 ML VIAL TP ONE; -METO-391 PO
== END | disposition home or self-care (01) ==
LOC: WHH 10:23
PROVIDERS: ATTEND Family Medicine
DX: T81.32XD Disruption of internal operation (surgical) wound, not elsewhere classified, subsequent encounter (principal); S31.109D Unspecified open wound of abdominal wall, unspecified quadrant without penetration into peritoneal cavity, subsequent encounter; I10 Essential (primary) hypertension; F41.9 Anxiety disorder, unspecified; F32.9 Major depressive disorder, single episode, unspecified; E66.9 Obesity, unspecified; Z68.35 Body mass index [BMI] 35.0-35.9, adult; Z90.710 Acquired absence of both cervix and uterus; Z79.899 Other long term (current) drug therapy; Z88.5 Allergy status to narcotic agent; Z87.442 Personal history of urinary calculi; Y83.8 Other surgical procedures as the cause of abnormal reaction of the patient, or of later complication, without mention of misadventure at the time of the procedure; X58.XXXD Exposure to other specified factors, subsequent encounter
CPT/HCPCS: A6209; G0463; 99214

== ENCOUNTER 2021-11-11 07:32 | Day surgery (SDC) | payer OTHER ==
[2021-11-08 12:49] LABS: BASOPHILS % (AUTO) 0.4 % (0.0-5.0); EOSINOPHILS % (AUTO) 2.2 % (0.0-8.0); HEMATOCRIT 41.1 % (36-48); LYMPHOCYTES % (AUTO) 17.2 % (21.0-51.0); MEAN CORPUSCULAR HEMOGLOBIN 29.5 pg (27.0-33.0); MEAN CORPUSCULAR HGB CONC 31.4 g/dL (32.0-36.0); MEAN CORPUSCULAR VOLUME 94.1 fL (79-99); MONOCYTES % (AUTO) 5.5 % (3.0-13.0); NEUTROPHILS % (AUTO) 74.4 % (40.0-77.0); PLATELET COUNT (AUTO) 342 K/uL (130-400); RED BLOOD CELL COUNT(AUTO) 4.37 MIL/uL (4.00-5.50); RED CELL DISTRIBUTION WIDTH 14.5 % (11.0-15.5); WHITE BLOOD COUNT (AUTO) 6.7 K/uL (4.8-10.8)
[2021-11-08 13:12] LABS: APPEARANCE,URINE Clear (CLEAR); BILIRUBIN,URINE Negative (NEGATIVE); COLOR,URINE Yellow (YELLOW); GLUCOSE, URINE (UA) Negative (NEGATIVE); KETONES,URINE Negative (NEGATIVE); LEUKOCYTE ESTERASE ,URINE Small (NEGATIVE); NITRATE,URINE Negative (NEGATIVE); OCCULT BLOOD,URINE Negative (NEGATIVE); PROTEIN,URINE Negative (NEGATIVE); UROBILINOGEN,URINE 0.2 mg/dL (0.2-1.0)
[2021-11-08 13:14] LABS: INR 0.99 (0.85-1.15); PROTHROMBIN TIME 10.8 SEC (9.6-11.6)
[2021-11-08 13:15] LABS: PARTIAL THROMBOPLASTIN TIME 28.5 SEC (26.3-35.5)
[2021-11-08 13:20] LABS: ALBUMIN 3.4 g/dL (3.5-5.0); BILIRUBIN,TOTAL 0.2 mg/dL (0.2-1.0); POTASSIUM 4.5 mmol/L (3.5-5.1); TOTAL PROTEIN, SERUM 8.3 g/dL (6.0-8.3)
[2021-11-08 13:29] LABS: BACTERIA,URINE Rare /HPF (None Seen); RBC,URINE 0-1 /HPF (0-1); SQUAMOUS EPITHELIAL CELL,UR Rare /HPF (0-2); WBC,URINE 0-1 /HPF (0-1)
[2021-11-11] VITALS (13 sets, daily range): BP systolic 123–162; BP diastolic 80–100
[~2021-11-11] VITALS: Ht 170.2 cm; Wt 111.1 kg
[~2021-11-11 07:32] MED LIST changes: -LIDOCAINE HCL 4% LTA SOL 4 ML VIAL TP ONE
[2021-11-11] MEDS ORDERED: METO-391 PO (09:55)
[2021-11-11] MEDS ORDERED: LISI40TA9 PO (09:55)
[2021-11-11] MEDS ORDERED: 0.9%NACL 1000ML 1,000 ML IV ONE (10:27)
[2021-11-11] MEDS ORDERED: PROPOFOL 10 MG/ML 20ML VIAL IV ONE ×3 (15:13→15:41)
[2021-11-11] MEDS ORDERED: MIDAZOLAM HCL 1 MG/ML 2ML VIAL ONE (15:13)
[2021-11-11] MEDS ORDERED: LIDOCAINE PF 100MG/5ML (2%) SYRINGE 5ML ONE (15:14)
== END 2021-11-11 16:18 | disposition home or self-care (01) ==
LOC: DAH 07:32
PROVIDERS: ATTEND Student in an Organized Health Care Education/Training Program
DX: K57.20 Diverticulitis of large intestine with perforation and abscess without bleeding (principal); K51.40 Inflammatory polyps of colon without complications; E66.9 Obesity, unspecified; I10 Essential (primary) hypertension; F41.9 Anxiety disorder, unspecified; F32.A Depression, unspecified; Z98.891 History of uterine scar from previous surgery; Z98.890 Other specified postprocedural states; Z79.899 Other long term (current) drug therapy; Z98.51 Tubal ligation status; Z90.721 Acquired absence of ovaries, unilateral; Z82.49 Family history of ischemic heart disease and other diseases of the circulatory system; Z80.3 Family history of malignant neoplasm of breast; Z80.7 Family history of other malignant neoplasms of lymphoid, hematopoietic and related tissues; Z90.49 Acquired absence of other specified parts of digestive tract; Z79.01 Long term (current) use of anticoagulants; Z68.36 Body mass index [BMI] 36.0-36.9, adult
CPT/HCPCS: 36415; 44388; 45330; 80053; 81001; 85025; 85610; 85730; 87635; A4215 ×2; A4221; A4222; A4223; A4606; A4620; A4663; A7002; C9803; J2001; J2250; J2704 ×3; J7030

== ENCOUNTER 2024-05-10 15:44 | Emergency (ER) | payer OTHER ==
[~2024-05-10] VITALS: Ht 170.2 cm; Wt 145.1 kg
[~2024-05-10 15:44] MED LIST changes: +METO-391 PO
[2024-05-10 15:55] VITALS: BP 160/88; PULSE 90; RESP 20; TEMP 98.6; O2SAT 98
--- NOTE | 2024-05-10 16:25 | EKG ---
[facility] Test Date: 2024-05-10 Test Time: 15:59:56 Pat Name: RYANNE SIDDIQUI Department: [facility] Room: Gender: F Sr. Manager: [id number] : 1970 Requested By: DRU DELA CRUZ Order Number: [id number] Reading MD: Jg Godfrey Measurements Intervals [place] Rate: 95 P: 55 ME: 171 QRS: -62 QRSD: 142 T: 16 QT: 389 QTc: 489 Interpretive Statements Sinus rhythm Atrial premature complex Probable left atrial enlargement RBBB and LAFB Left ventricular hypertrophy Compared to ECG 12/26/2020 19:52:32 Atrial premature complex(es) now present Right bundle-branch block now present Myocardial infarct finding no longer present Electronically Signed On 05-10-2024 18:11:46 LOCK TENDER by Jg Godfrey Please click the below link to view image of tracing.
--- NOTE | 2024-05-10 16:29 | ERN ---
General Chief Complaint: Shoulder Injury/Pain Stated Complaint: RIGHT SHOULDER PAIN SINCE THURSDAY Time Seen by MD: 15:47 Source: patient History of Present Illness Initial Comments PATIENT IS A 53-YEAR-OLD FEMALE COMING IN TO BE EVALUATED FOR RIGHT SHOULDER PAIN. PATIENT STATES THAT SHE WOKE UP WITH HIS PAIN AND IS LOCALIZED TO THE RIGHT DELTOID REGION. SHE STATES THAT THE PAIN IS EXACERBATED WITH THE ELEVATION OF ARM. Allergies: Coded Allergies: codeine (Unverified Allergy, Severe, HEADACHE, 12/26/20) Home Meds Reported Medications Lisinopril (Lisinopril) 40 Mg Tablet, 40 MG PO DAILY, TAB 11/11/21 Metoprolol Succinate (Metoprolol Succinate) 50 Mg Tab.er.24h, 50 MG PO DAILY, TAB 11/11/21 Lisinopril (Lisinopril) 40 Mg Tablet, 40 MG PO HS, TAB 06/24/21 Escitalopram Oxalate (Escitalopram Oxalate) 10 Mg Tablet, 10 MG PO DAILY, TAB 06/24/21 Past Medical History Past Medical History: Anxiety, Arthritis, Depression, Hypertension Past Surgical History: Other, BTL, Surgical History Other: INTESTINAL RESECTION, COLOSTOMY AND REVERSAL, OOPHRECTOMY Social History Social History: Negative ROS Dictation CONSTITUTIONAL: NO CHILLS, NO FEVER, NO WEAKNESS, NO DIAPHORESIS, NO MALAISE. HEAD/FACE: NO SIGNS OF TRAUMA. EENT: NO EYE PAIN, NO BLURRED VISION, NO TEARING, NO DOUBLE VISION, NO EAR PAIN, NO EAR DISCHARGE, NO NOSE PAIN, NO NASAL CONGESTION, NO THROAT PAIN, NO THROAT SWELLING, NO MOUTH PAIN. RESPIRATORY: NO COUGH, NO ORTHOPNEA, NO SOB, NO STRIDOR, NO WHEEZING. CARDIOVASCULAR: NO CHEST PAIN, NO EDEMA, NO PALPITATIONS, NO SYNCOPE. GASTROINTESTINAL/ABDOMINAL: NO ABDOMINAL PAIN, NO CONSTIPATION, NO DIARRHEA, NO NAUSEA, NO VOMITING. GENITOURINARY: NO ABNORMAL DISCHARGE, NO DYSURIA, NO FREQUENT URINATION, NO HEMATURIA. NO COMPLAINTS OF PAIN IN THE GENITALS. MUSCULOSKELETAL: NO BACK PAIN, NO GOUT, JOINT PAIN, NO JOINT SWELLING, MUSCLE PAIN, NO MUSCLE STIFFNESS, NO NECK PAIN. INTEGUMENTARY: NO CHANGE IN COLOR, NO CHANGE IN HAIR/NAILS, NO DRYNESS, NO LESION, NO LUMPS, NO RASH. NEUROLOGICAL/PSYCH: NO ANXIETY, NOT DEPRESSED, NO EMOTIONAL PROBLEM, NO HEADACHE, NO NUMBNESS, NO PRE-EXISTING DEFICIT, NO HISTORY OF SEIZURES, NO TREMORS, NO WEAKNESS. HEMATOLOGIC/LYMPHATIC: NOT ANEMIC, NO HISTORY OF BLOOD CLOTS, NO APPARENT BLEEDING, NO BRUISING, GLANDS NOT SWOLLEN. ALL SYSTEMS NEGATIVE, EXCEPT NOTED. Physical Exam Physical Exam Dictation VITAL SIGNS: REVIEWED. GENERAL APPEARANCE: ALERT, ORIENTED X3, NO ACUTE DISTRESS, OBESE. HEAD AND FACE: NON-TRAUMATIC. EYES: PERRL, PINK CONJUNCTIVAS, EYELID NO TRAUMA, ANTERIOR CHAMBER CLEAR. EARS: PINNAS INTACT AND NO SIGNS OF TRAUMA OR ERYTHEMA. EAR CANALS CLEAR AND NO DISCHARGE. TMS NO ERYTHEMA. NOSE: NO DISCHARGE, NO BLEEDING. OROPHARYNX: MOUTH NORMAL, TEETH NO CARIES, TONGUE PINK. PHARYNX CLEAR, NO ERYTHEMA. TONSILS NO EXUDATES, NO ABSCESSES NOTED. MUCOUS MEMBRANE MOIST. NECK: SUPPLE, NON-TENDER, NO THYROMEGALY, NO MASSES, NO JVD, NO BRUITS. BREAST: DEFERRED. CHEST: NO TENDERNESS, NO CREPITUS, NO PARADOXICAL MOVEMENT, NO RETRACTIONS. LUNGS: CLEAR, WELL-VENTILATED, SYMMETRIC, NO RALES, NO WHEEZING, NO RHONCHI, NO STRIDOR, GOOD BREATH SOUNDS BILATERALLY. HEART: REGULAR RATE, REGULAR RHYTHM, NO MURMUR, NO GALLOPS. VASCULAR: NO PERIPHERAL EDEMA. ABDOMEN: SOFT, POSITIVE BOWEL SOUNDS, NONDISTENDED, NO GUARDING, NONTENDER, NO REBOUND, NO MASSES NO HEPATOMEGALY, NO SPLENOMEGALY, NO WARE'S SIGN, NO HER NIAS. RECTAL: DEFERRED. GENITAL: DEFERRED. NEUROLOGICAL: NORMAL SPEECH, GROSS MOTOR FUNCTION INTACT, GROSS SENSORY FUNCTION INTACT. MUSCULOSKELETAL: NECK NONTENDER, FULL RANGE OF MOTION, BACK NONTENDER, FULL RANGE OF MOTION. EXTREMITIES: NONTENDER, FULL RANGE OF MOTION. RIGHT SHOULDER TENDERNESS TO PALPATION, PAIN ON ABDUCTION FLEXION AND EXTENSION. SKIN: COLOR PINK, DRY, NO TURGOR, NO RASH, NO LACERATIONS, NO ABRASIONS, NO CONTUSIONS. LYMPHATICS: DEFERRED. Results Laboratory and Microbiology Labs Reviewed?: Yes EKG/XRAY/US/CT/MRI EKG Comment 05/10/2024 TIME 3:59 P.M. VENTRICULAR RATE [address] WAVE ELEVATION OR DEPRESSION X-RAY Comment RIGHT SHOULDER- NAD MDM MDM: DIFFERENTIAL DIAGNOSIS: SHOULDER STRAIN, DISLOCATED, PATIENT IS A 52-YEAR-OLD FEMALE COMING IN TO BE EVALUATED FOR RIGHT SHOULDER PAIN. X-RAY OF THE RIGHT SHOULDER AND EKG DID NOT DISCLOSE ACUTE FINDINGS. PATIENT WILL BE DISCHARGED WITH A DIAGNOSIS OF RIGHT SHOULDER STRAIN A SLING WILL BE PROVIDED AND MEDICATION FOR SYMPTOMATIC RELIEF. ED Course Orders Procedure Category Date Status Time 12 Lead Ekg Tracing- EKG 05/10/24 Complete Technical 15:53 Shoulder Comp 2+Vws Rt RAD 05/10/24 Taken 15:53 Orphenadrine Citrate PHA 05/10/24 Complete (Norflex) 16:00 Ketorolac PHA 05/10/24 Complete Tromethamine 30mg/Ml 16:00 Sling ALESHA 05/10/24 In Process 16:36 Current Medications Medications (Trade) Dose Ordered Sig/Mari Route PRN Reason Start Time Stop Time Status Last Admin Dose Admin Ketorolac Tromethamine (toRADol) 30 mg ONCE ONCE IM 05/10/24 16:00 05/10/24 16:01 DC Orphenadrine Citrate (Norflex) 60 mg ONCE ONCE IM 05/10/24 16:00 05/10/24 16:01 DC Vital Signs Date Time Temp Pulse Resp B/P (MAP) Pulse Ox O2 Delivery O2 Flow Rate FiO2 05/10/24 15:55 98.6 90 20 160/88 98 Room Air* 0 21 05/10/24 15:45 98.6 92 20 167/91 98 Room Air 0 DX & DISP Disposition: Discharge Departure Impression: Primary Impression: Right shoulder strain Condition: Stable Scripts Naproxen (Naproxen) 375 Mg Tablet.dr 375 MG PO BID for 7 Days, #14 TAB Prov: DRU DELA CRUZ MD 05/10/24 Methocarbamol (Robaxin) 750 Mg Tab 1 TAB PO BID for 7 Days, #14 TAB 0 Refills Prov: DRU DELA CRUZ MD 05/10/24 Additional Instructions: FOLLOW-UP WITH PRIMARY CARE PROVIDER IN 1 TO 2 DAYS. TAKE MEDICATIONS DIRECTED HERE IN THE EMERGENCY ROOM. OKAY TO CONTINUE HOME MEDICATIONS UNLESS OTHERWISE DISCUSSED DURING YOUR VISIT IN THE EMERGENCY ROOM TODAY. RETURN TO YOUR NEAREST EMERGENCY ROOM IF SYMPTOMS WORSEN OR IF THERE IS NO IMPROVEMENT. CALL 911 IF YOU NEED IMMEDIATE ASSISTANCE. TAKE TYLENOL LEZY-SJO-DVMUTSH NEEDED AND IF NO CONTRAINDICATIONS ARE PRESENT. INCREASE ORAL HYDRATION. A WOUND CULTURE OR URINE CULTURE WAS ORDERED HERE IN THE EMERGENCY ROOM DEPARTMENT PLEASE FOLLOW-UP WITH PRIMARY CARE PROVIDER AND ADVISE THEM TO GET REPEAT PORTS FROM OUR FACILITY. IF YOU HAD ANY JORGE WRAP/SPLINTS THAT WERE APPLIED HERE, PLEASE DO NOT REMOVE THEM UNTIL YOU SEE YOUR PRIMARY CARE OR SPECIALTY. REFERRALS: Referrals: SCOTT MOBLEY MD (PCP) Time of Disposition: 16:49 DRU DELA CRUZ MD May 10, 2024 16:29
[2024-05-10] MEDS ORDERED: METH-662 PO (16:50)
[2024-05-10] MEDS ORDERED: NAPR-1505 PO (16:50)
--- NOTE | 2024-05-10 16:51 | HMCIMG ---
SHOULDER COMP 2+VWS RT REASON: SHOULDER PAIN TECHNIQUE: 2 views were obtained. FINDINGS: There is no evidence of fracture or dislocation. There is no joint effusion. The soft tissues appear unremarkable. There is no evidence of a radiopaque foreign body. IMPRESSION: No acute findings.
[2024-05-10] MEDS: ketOROlac 30MG VIAL (30MG/ML) IM ONE (16:58)
[2024-05-10] MEDS: ORPHENADRINE 60MG/2ML IM ONE (16:58)
--- NOTE | 2024-05-10 17:02 | NUR ---
PT REFUSED TORADOL INJ AFTER SCANNED AND DRAWN STATED PREV REACTION OF PAIN NON ALLERGIC
== END 2024-05-10 17:16 | disposition home or self-care (01) ==
LOC: EDH 15:44
DX: S46.911A Strain of unspecified muscle, fascia and tendon at shoulder and upper arm level, right arm, initial encounter (principal); F32.A Depression, unspecified; F41.9 Anxiety disorder, unspecified; M19.90 Unspecified osteoarthritis, unspecified site; I10 Essential (primary) hypertension; Z79.899 Other long term (current) drug therapy; Z88.5 Allergy status to narcotic agent; Z98.51 Tubal ligation status; X58.XXXA Exposure to other specified factors, initial encounter; Y93.89 Activity, other specified; Y92.89 Other specified places as the place of occurrence of the external cause; Y99.8 Other external cause status
CPT/HCPCS: 99284; 73030; 96372 ×2; 93005; J1885; J2360

== ENCOUNTER 2024-09-13 14:27 | Emergency (ER) | payer BC, OTHER ==
[~2024-09-13] VITALS: Ht 170.2 cm; Wt 145.1 kg
[~2024-09-13 14:27] MED LIST changes: +METH-662 PO; +NAPR-1505 PO
--- NOTE | 2024-09-13 14:36 | ERN ---
ED Note History of Present Illness Stated Complaint: BODY ACHES Chief Complaint: Generalized Body Aches Time Seen by MD: 14:30 Dictation: PATIENT IS A 53-YEAR-OLD FEMALE COMING IN WITH BILATERAL POLY JOINT PAIN TO INCLUDE SHOULDERS WRISTS HANDS FINGER JOINTS ETC. SO IN HER KNEES. SHE STATES SHE THINKS SHE HAS A HISTORY OF ARTHRITIS HOWEVER HAS NEVER BEEN REFERRED TO A POSTAL SORTING OFFICER. SHE STATES SHE HAD AN X-RAY COUPLE OF WEEKS BACK FOR HER KNEE AND THEN CHANGED HER DOCTOR TO [facility] MOJICA HAS NOT BEEN ABLE TO FOLLOW UP WITH CIR[facility] [place]. NO FEVER NO CHILLS Allergies: Coded Allergies: codeine (Unverified Allergy, Severe, HEADACHE, 12/26/20) Home Meds Active Scripts Naproxen (Naproxen) 375 Mg Tablet.dr, 375 MG PO BID for 7 Days, #14 TAB Prov:DRU DELA CRUZ MD 05/10/24 Methocarbamol (Robaxin) 750 Mg Tab, 1 TAB PO BID for 7 Days, #14 TAB 0 Refills Prov:DRU DELA CRUZ MD 05/10/24 Reported Medications Lisinopril (Lisinopril) 40 Mg Tablet, 40 MG PO DAILY, TAB 11/11/21 Metoprolol Succinate (Metoprolol Succinate) 50 Mg Tab.er.24h, 50 MG PO DAILY, TAB 11/11/21 Lisinopril (Lisinopril) 40 Mg Tablet, 40 MG PO HS, TAB 06/24/21 Escitalopram Oxalate (Escitalopram Oxalate) 10 Mg Tablet, 10 MG PO DAILY, TAB 06/24/21 Past Medical History Past Medical History: Anxiety, Arthritis, Depression, Hypertension Surgical History: Other, BTL, Surgical History Other: INTESTINAL RESECTION, COLOSTOMY AND REVERSAL, OOPHRECTOMY Social History: Negative History: Not Applicable RN Note Reviewed/Agreed w/PFSH: Yes Review of System Dictation CONSTITUTIONAL: NEGATIVE EXCEPT FOR HPI HEAD/FACE: NEGATIVE EXCEPT FOR HPI EENT: NEGATIVE EXCEPT FOR HPI RESPIRATORY: NEGATIVE EXCEPT FOR HPI GASTROINTESTINAL/ABDOMINAL: NEGATIVE EXCEPT FOR HPI GENITOURINARY: NEGATIVE EXCEPT FOR HPI MUSCULOSKELETAL: NEGATIVE EXCEPT FOR HPI BILATERAL POLY JOINT PAIN INTEGUMENTARY: NEGATIVE EXCEPT FOR HPI NEUROLOGICAL/PSYCH: NEGATIVE EXCEPT FOR HPI HEMATOLOGIC/LYMPHATIC: NEGATIVE EXCEPT FOR HPI ALL SYSTEMS NEGATIVE, EXCEPT NOTED ABOVE. 13 POINT REVIEW OF SYSTEMS ASSESSED AND ALL NEGATIVE EXCEPT FOR ABOVE. Initial Vital Sign VS Vital Signs Date Time Temp Pulse Resp B/P (MAP) Pulse Ox O2 Delivery O2 Flow Rate FiO2 09/13/24 14:29 98.4 110 16 160/104 98 Room Air 0 09/13/24 14:29 21 Physical Exam Dictation VITAL SIGNS REVIEWED GENERAL APPEARANCE: ALERT, ORIENTED X 3, MODERATE ACUTE DISTRESS, WELL DEVELOPED, NOURISHED. OBESE HEAD AND FACE: NON-TRAUMATIC. EYES: PERRL, PINK CONJUNCTIVAS, EYELID NO TRAUMA, ANTERIOR CHAMBER WITH ARCUS SENILIS. EARS: PINNAS INTACT AND NO SIGNS OF TRAUMA OR ERYTHEMA EAR CANALS CLEAR AND NO DISCHARGE TM NO ERYTHEMA NOSE: NO DISCHARGE, NO BLEEDING. OROPHARYNX: MOUTH NORMAL, TONGUE PINK, PHARYNX CLEAR,NO ERYTHEMA, TONSILS NO EXUDATES, NO ABSCESSES NOTED, MUCOUS MEMBRANE MOIST NECK: SUPPLE, NON-TENDER, NO THYROMEGALY, NO MASSES, NO JVD, NO BRUITS BREAST:DEFERRED CHEST:NO TENDERNESS, NO CREPITUS, NO PARADOXICAL MOVEMENT, NO RETRACTIONS LUNGS:CLEAR, WELL-VENTILATED, SYMMETRIC, NO RALES, NO WHEEZING, NO RHONCHI, NO STRIDOR, GOOD BREATH SOUNDS BILATERALLY HEART: REGULAR RATE, REGULAR RHYTHM, NO MURMUR, NO GALLOPS VASCULAR: NO PERIPHERAL EDEMA, ABDOMEN: SOFT, POSITIVE BOWEL SOUNDS, NONDISTENDED, NO GUARDING, NONTENDER, NO REBOUND, NO MASSES NO HEPATOMEGALY, NO SPLENOMEGALY, NO WARE'S SIGN, NO HERNIAS. RECTAL: DEFERRED GENITAL: DEFERRED NEUROLOGICAL: NORMAL SPEECH, MOTOR FUNCTION INTACT, SENSORY FUNCTION INTACT MUSCULOSKELETAL: NECK NONTENDER, FULL RANGE OF MOTION, BACK NONTENDER, FULL RANGE OF MOTION, EXTREMITIES: PATIENT HAS BILATERAL POLY JOINT PAIN TO SHOULDERS RISK FINGERS, HIPS AND KNEES. MILD DEGENERATIVE CHANGES SEEN IN FINGERS. SKIN: COLOR PINK, DRY, NO TURGOR, NO RASH, NO LACERATIONS, NO ABRASIONS, NO CONTUSIONS. LYMPHATIC: DEFERRED Results (Laboratory/Radiology) Laboratory/Radiology Laboratory Tests Test 09/13/24 15:08 White Blood Count 10.3 K/uL (4.8-10.8) Red Blood Count 4.16 MIL/uL (4.00-5.50) Hemoglobin 12.3 g/dL (12.0-16.0) Hematocrit 39.3 % (36-48) Mean Corpuscular Volume 94.5 fL (79-99) Mean Corpuscular Hemoglobin 29.6 pg (27.0-33.0) Mean Corpuscular Hemoglobin Concent 31.3 g/dL (32.0-36.0) L Red Cell Distribution Width 15.1 % (11.0-15.5) Platelet Count 437 K/uL (130-400) H Mean Platelet Volume 9.3 fL (7.5-10.5) Immature Granulocyte % (Auto) 0.7 % (0-1) Neutrophils (%) (Auto) 81.6 % (40.0-77.0) H Lymphocytes (%) (Auto) 11.1 % (21.0-51.0) L Monocytes (%) (Auto) 5.1 % (3.0-13.0) Eosinophils (%) (Auto) 1.0 % (0.0-8.0) Basophils (%) (Auto) 0.5 % (0.0-5.0) Neutrophils # (Auto) 8.4 K/uL (1.8-7.7) H Lymphocytes # (Auto) 1.1 K/uL (1.0-4.8) Monocytes # (Auto) 0.5 K/uL (0.1-1.0) Eosinophils # (Auto) 0.10 K/uL (0.00-0.70) Basophils # (Auto) 0.05 K/uL (0.00-0.20) Absolute Immature Granulocyte (auto 0.07 K/uL (0-1) Nucleated Red Blood Cells 0.0 % (0.0-0.19) Sodium Level 143 mmol/L (136-145) Potassium Level 3.8 mmol/L (3.5-5.1) Chloride Level 105 mmol/L (101-111) Carbon Dioxide Level 31 mmol/L (21-32) Blood Urea Nitrogen 16 mg/dL (7-18) Creatinine 1.2 mg/dL (0.5-1.0) H Glomerular Filtration Rate Calc 54 mL/min (>90) Random Glucose 118 mg/dL (70-105) H Total Calcium 9.4 mg/dL (8.5-10.1) Labs Reviewed?: Yes ED Course ED Course Orders Procedure Category Date Status Time Cbc With Differential LAB 09/13/24 Complete 14:33 Basic Metabolic Panel LAB 09/13/24 Complete 14:33 Ketorolac 60mg/2ml PHA 09/13/24 Complete (Toradol 60mg/2ml) 15:00 Dexamethasone 4mg/Ml PHA 09/13/24 Complete 1ml Vial (Dexametha 15:00 Current Medications Medications (Trade) Dose Ordered Sig/Mari Route PRN Reason Start Time Stop Time Status Last Admin Dose Admin Dexamethasone Sodium Phosphate (dexaMETHasone 4MG/ML 1ML VIAL) 4 mg ONCE ONCE IM 09/13/24 15:00 09/13/24 15:01 DC 09/13/24 14:51 Ketorolac Tromethamine (toRADol 60MG/ 2ML) 60 mg ONCE ONCE IM 09/13/24 15:00 09/13/24 15:01 DC 09/13/24 14:52 Vital Signs Date Time Temp Pulse Resp B/P (MAP) Pulse Ox O2 Delivery O2 Flow Rate FiO2 09/13/24 14:29 98.4 110 16 160/104 98 Room Air* 0 21 09/13/24 14:29 98.4 110 16 160/104 98 Room Air 0 1550/PATIENT DISCHARGED HOME WITH POLYARTHRITIS PAIN AND DEHYDRATION. GIVEN IBUPROFEN/OMEPRAZOLE/PREDNISONE TOLD SEE HER PRIMARY CARE DOCTOR FOR REFERRAL TO RHEUMATOLOGY Medical Decision Making MDM MEDICAL DECISION-MAKING BASED ON BASIC LABS AND TREATMENT FOR ARTHRITIS FLARE. PATIENT DISCHARGED HOME WITH A REHYDRATION INSTRUCTIONS ADDITIONALLY GIVEN OMEPRAZOLE/IBUPROFEN/PREDNISONE TOLD TO SEE HER PRIMARY CARE DOCTOR FOR FOLLOW UP AND MANAGEMENT DX & DISP Disposition: Discharge Departure Impression: Primary Impression: Arthritis pain Additional Impressions: Dehydration, Benign hypertension Condition: Stable Scripts Omeprazole (Omeprazole) 40 Mg Capsule.dr 1 CAP PO DAILY for 30 Days, #30 CAP 0 Refills Prov: LOYD SPARROW NP 09/13/24 Prednisone (Prednisone) 20 Mg Tablet 1 TAB PO AD for 6 Days, #14 TAB 0 Refills TAKE 1 TAB BY MOUTH THREE TIMES PER DAY X3 DAYS, THEN TAKE 1 TAB BY MOUTH TWICE A DAY X2 DAYS, THEN TAKE 1 TAB BY MOUTH ONCE A DAY X1 DAY. TAKE WITH FOOD Prov: LOYD SPARROW NP 09/13/24 Ibuprofen (Ibuprofen 800 mg Tab) 800 Mg Tab 800 MG PO Q8H PRN for fever or pain, #30 TAB 0 Refills Prov: LOYD SPARROW NP 09/13/24 Additional Instructions: FOLLOW-UP WITH PRIMARY CARE PROVIDER IN 1 TO 2 DAYS. TAKE MEDICATIONS DIRECTED HERE IN THE EMERGENCY ROOM. OKAY TO CONTINUE HOME MEDICATIONS UNLESS OTHERWISE DISCUSSED DURING YOUR VISIT IN THE EMERGENCY ROOM TODAY. RETURN TO YOUR NEAREST EMERGENCY ROOM IF SYMPTOMS WORSEN OR IF THERE IS NO IMPROVEMENT. CALL 911 IF YOU NEED IMMEDIATE ASSISTANCE. TAKE TYLENOL OR MOTRIN [id number] NEEDED AND IF NO CONTRAINDICATIONS ARE PRESENT. INCREASE ORAL HYDRATION. A WOUND CULTURE OR URINE CULTURE WAS ORDERED HERE IN THE EMERGENCY ROOM DEPARTMENT PLEASE FOLLOW-UP WITH PRIMARY CARE PROVIDER AND ADVISE THEM TO GET REPEAT PORTS FROM OUR FACILITY. IF YOU HAD ANY JORGE WRAP/SPLINTS THAT WERE APPLIED HERE, PLEASE DO NOT REMOVE THEM UNTIL YOU SEE YOUR PRIMARY CARE OR SPECIALTY. TAKE IBUPROFEN EVERY 8 HOURS WITH FOOD FOR TWO DAYS. TAKE PREDNISONE DIRECTED UNTIL GONE. TAKE OMEPRAZOLE DIRECTED. SEE YOUR PRIMARY CARE DOCTOR FOR FOLLOW UP AND MANAGEMENT OF YOUR ARTHRITIS PAIN AND YOUR BLOOD PRESSURE. Referrals: JD ALEMAN (PCP) Time of Disposition: 15:55 I have reviewed the case, and I agree with, Diagnosis and Plan LOYD SPARROW NP Sep 13, 2024 14:36
[2024-09-13] MEDS: dexaMETHasone SOD PHOSPHATE 4 MG/ML 1ML VIAL IM ONE (14:51)
[2024-09-13] MEDS: ketOROlac 60 MG VIAL (30MG/ML) IM ONE (14:52)
[2024-09-13 15:29] LABS: BASOPHILS # (AUTO) 0.05 K/uL (0.00-0.20); BASOPHILS % (AUTO) 0.5 % (0.0-5.0); HEMATOCRIT 39.3 % (36-48); IMMATURE GRANULOCYTE ABSOLUTE 0.07 K/uL (0-1); LYMPHOCYTES # (AUTO) 1.1 K/uL (1.0-4.8); LYMPHOCYTES % (AUTO) 11.1 % (21.0-51.0); MEAN CORPUSCULAR HEMOGLOBIN 29.6 pg (27.0-33.0); MEAN CORPUSCULAR HGB CONC 31.3 g/dL (32.0-36.0); MEAN CORPUSCULAR VOLUME 94.5 fL (79-99); MONOCYTES # (AUTO) 0.5 K/uL (0.1-1.0); MONOCYTES % (AUTO) 5.1 % (3.0-13.0); NEUTROPHILS # (AUTO) 8.4 K/uL (1.8-7.7); NEUTROPHILS % (AUTO) 81.6 % (40.0-77.0); PLATELET COUNT (AUTO) 437 K/uL (130-400); RED BLOOD CELL COUNT(AUTO) 4.16 MIL/uL (4.00-5.50); RED CELL DISTRIBUTION WIDTH 15.1 % (11.0-15.5); WHITE BLOOD COUNT (AUTO) 10.3 K/uL (4.8-10.8)
[2024-09-13 15:51] LABS: CREATININE 1.2 mg/dL (0.5-1.0); POTASSIUM 3.8 mmol/L (3.5-5.1)
[2024-09-13] MEDS ORDERED: PRED20TA3 PO (15:57)
[2024-09-13] MEDS ORDERED: IBUP-2077 PO (15:57)
[2024-09-13] MEDS ORDERED: OMEP40CA21 PO (15:57)
[2024-09-13 16:09] VITALS: BP 141/89; PULSE 88; RESP 16; TEMP 98.4; O2SAT 98
== END 2024-09-13 16:12 | disposition home or self-care (01) ==
LOC: EDH 14:27
DX: M19.90 Unspecified osteoarthritis, unspecified site (principal); E86.0 Dehydration; I10 Essential (primary) hypertension; F32.A Depression, unspecified; F41.9 Anxiety disorder, unspecified; Z79.899 Other long term (current) drug therapy; Z88.5 Allergy status to narcotic agent; Z98.51 Tubal ligation status
CPT/HCPCS: 99284; 80048; 85025; 36415; 96372 ×2; J1100; J1885